=== PATIENT | male | born 1990 | race African-American/Black ===

== ENCOUNTER 2019-05-08 19:35 | Emergency (ER) | payer SELFPAY ==
[~2019-05-08] VITALS: Ht 175.3 cm; Wt 86.4 kg
[~2019-05-08 19:35] MED LIST: AMOXICILLIN500 MG PO; BACTRIM DS1 TAB PO; CIPROFLOXACN500 MG PO; DILAUDID 2MG2 MG/TA1 PO; FLEXERIL PO; FLEXERIL5 M1 PO; LORTAB5 PO; NAPROSYN500 MG OR; NAPROSYN500 MG PO; NO HOME MEDS; RIFADIN300 MG PO; TORADOL OR; ULTRAM50 M1 PO; VALIUM5 MG PO; XANAX1 MG PO; ZOFRAN ODT4 MG PO
[2019-05-08] MEDS ORDERED: VOLTAREN - GENE75 MG PO (22:08)
[2019-05-08 22:27] VITALS: BP 123/93
== END 2019-05-08 22:27 | disposition home or self-care (01) ==
LOC: ED 19:35
DX: S20.212A Contusion of left front wall of thorax, initial encounter (principal); F17.200 Nicotine dependence, unspecified, uncomplicated; Y04.0XXA Assault by unarmed brawl or fight, initial encounter; Y92.89 Other specified places as the place of occurrence of the external cause

== ENCOUNTER 2022-05-20 21:52 | Emergency (ER) | payer OTHER ==
[~2022-05-20] VITALS: Ht 175.3 cm; Wt 80.0 kg
[~2022-05-20 21:52] MED LIST changes: +VOLTAREN - GENE75 MG PO
[2022-05-20 22:16] VITALS: BP 116/79
[2022-05-20 22:30] VITALS: BP 112/80
[2022-05-20 23:00] VITALS: BP 109/79
[2022-05-20 23:15] VITALS: BP 113/79
[2022-05-20 23:30] VITALS: BP 117/80
[2022-05-20 23:45] VITALS: BP 111/76
[2022-05-20] MEDS ORDERED: VOLTAREN75 MG PO (23:49)
[2022-05-21 00:01] VITALS: BP 111/76
== END 2022-05-21 00:01 | disposition home or self-care (01) | DRG 552 ==
LOC: ED 21:52
DX: S16.1XXA Strain of muscle, fascia and tendon at neck level, initial encounter (principal); V43.12XA Car passenger injured in collision with other type car in nontraffic accident, initial encounter; Y92.481 Parking lot as the place of occurrence of the external cause

== ENCOUNTER 2022-10-11 11:56 | Emergency (ER) | payer OTHER ==
[~2022-10-11] VITALS: Ht 175.3 cm; Wt 77.6 kg
[~2022-10-11 11:56] MED LIST changes: +VOLTAREN75 MG PO
[2022-10-11 12:09] VITALS: BP 121/88
[2022-10-11 12:15] VITALS: BP 113/82
[2022-10-11 12:30] VITALS: BP 114/75
[2022-10-11 13:15] VITALS: BP 108/75
[2022-10-11 13:30] VITALS: BP 106/74
[2022-10-11 13:59] VITALS: BP 106/74
== END 2022-10-11 14:03 | disposition home or self-care (01) | DRG 552 ==
LOC: ED 11:56
DX: M54.2 Cervicalgia (principal); S06.0X0A Concussion without loss of consciousness, initial encounter; M25.531 Pain in right wrist; M25.561 Pain in right knee; R51.9 Headache, unspecified; F17.210 Nicotine dependence, cigarettes, uncomplicated; V49.9XXA Car occupant (driver) (passenger) injured in unspecified traffic accident, initial encounter

== ENCOUNTER 2024-07-14 09:36 | Emergency (ER) | payer OTHER ==
[2024-07-14] VITALS (10 sets, daily range): BP systolic 123–136; BP diastolic 75–95
[~2024-07-14] VITALS: Ht 175.3 cm; Wt 81.8 kg
[~2024-07-14 09:36] MED LIST changes: +MOTRIN800 MG PO; +NAPROXEN500 MG PO
[2024-07-14] MEDS ORDERED: ONDANSETRON HCl 4 MG/2 ML SDV IV ONE (09:50)
[2024-07-14 10:28] LABS: BASO% 0.2 % (0-3); EOS% 1.8 % (0-8); HEMATOCRIT 39.2 % (39.0-50.0); HEMOGLOBIN 12.3 g/dl (14.0-18.0); LYMPH% 19.6 % (15-41); MEAN CELL VOLUME 73.7 fL CALC (80.0-100.0); MEAN CORPUSCULAR HGB 23.1 pG CALC (26.0-32.0); MEAN CORPUSCULAR HGB CONC 31.4 g/dL CAL (32.0-36.0); MONO% 8.2 % (2-13); NEUT# 3.44 thou/uL (1.82-7.42); NEUT% 70.2 % (42-76); RED BLOOD COUNT 5.32 mill/uL (4.70-6.10); RED CELL DISTRI WIDTH 14.4 % (11.5-15.5)
[2024-07-14 10:51] LABS: URINE BILIRUBIN - DIPSTICK Negative (NEGATIVE); URINE BLOOD DIPSTICK Trace-intact (NEGATIVE); URINE GLUCOSE - DIPSTICK Negative (NEGATIVE); URINE KETONE Negative (NEGATIVE); URINE LEUK ESTERASE Negative (NEGATIVE); URINE NITRITE - DIPSTICK Negative (Negative); URINE PH 8.5 (4.5-8.0); URINE PROTEIN - DIPSTICK Trace mg/dL (NEG-TRACE)
[2024-07-14 10:52] LABS: URINE COLOR Yellow
[2024-07-14 11:07] LABS: ALBUMIN 4.3 g/dL (3.2-5.0); BILIRUBIN, TOTAL 0.4 mg/dL (0.2-1.3); POTASSIUM 4.4 mmol/l (3.5-5.1); TOTAL PROTEIN 8.1 g/dL (6.3-8.2)
[2024-07-14] MEDS ORDERED: ZOFRAN4 MG/TAB PO (11:37)
[2024-07-14] MEDS ORDERED: ZPAK PO (11:37)
== END 2024-07-14 11:56 | disposition home or self-care (01) | DRG 153 ==
LOC: ED 09:36
PROVIDERS: Family Medicine
DX: J06.9 Acute upper respiratory infection, unspecified (principal); F17.200 Nicotine dependence, unspecified, uncomplicated; Z20.822 Contact with and (suspected) exposure to COVID-19